=== PATIENT | female | born 1975 | race Caucasian/White ===

== ENCOUNTER 2017-04-30 18:14 | Emergency (ER) | payer SELFPAY ==
[2017-04-30] MEDS ORDERED: Ketorolac 60 MG/2 ML SDV IM ONE (18:50)
--- NOTE | 2017-04-30 18:55 | EDM.PDOC ---
ED HPI GENERAL MEDICAL PROBLEM - General Chief Complaint: Lower Extremity Injury/Pain Stated Complaint: PAIN RT LEG Time Seen by Provider: 04/30/17 18:51 Source of Information: Reports: Patient History Limitations: Reports: No Limitations - History of Present Illness INITIAL COMMENTS - FREE TEXT/NARRATIVE: HISTORY AND PHYSICAL: History of present illness: 41-year-old female presents to the emergency room today with complaints of right ankle pain. Reports last night around 9 PM she started having "achy pain" and proceeded to go to bed. Woke up this morning with muscle spasms which increased in intensity and frequency. Patient denies any recent trauma or injury. No previous history of ankle pain, trauma or surgery. Has taken over-the -counter ibuprofen without relief. Denies any significant health problems. Review of systems: As per history of present illness and below otherwise all systems reviewed and negative. Past medical history: As per history of present illness and as reviewed below otherwise noncontributory. Surgical history: As per history of present illness and as reviewed below otherwise noncontributory. Social history: No reported history of drug or alcohol abuse. Family history: As per history of present illness and as reviewed below otherwise noncontributory. Physical exam: Gen.: Nontoxic appearing 41-year-old female. Tearful and appears anxious. Able to speak in full sentences without shortness of breath. Answers questions appropriately. Alert and oriented. HEENT: Atraumatic, normocephalic, pupils reactive, negative for conjunctival pallor or scleral icterus, mucous membranes moist, throat clear, neck supple, nontender, trachea midline. Lungs: Clear to auscultation, breath sounds equal bilaterally, chest nontender. Heart: S1S2, regular, negative for clicks, rubs, or JVD. Abdomen: Soft, nondistended, nontender. Negative for masses or hepatosplenomegaly. Negative for costovertebral tenderness. Pelvis: Stable nontender. Genitourinary: Deferred. Rectal: Deferred. Extremities: Atraumatic, moves all per self. Able to bear weight. Strong pedal pulses bilaterally. Negative for cords or calf pain. Neurovascular unremarkable. Skin: Warm, dry, intact. No lesions, open sores, rashes or erythema. Neuro: Awake, alert, oriented. Cranial nerves II through XII unremarkable. Cerebellum unremarkable. Motor and sensory unremarkable throughout. Exam nonfocal. Diagnostics: Ankle x-ray Therapeutics: Toradol IM Impression: Ankle pain Definitive disposition and diagnosis as appropriate pending reevaluation and review of above. Onset Date: 04/29/17 Location: Reports: Lower Extremity, Right Right Ankle Pain Score (Numeric/FACES): 10 - Related Data Allergies Allergy/AdvReac Type Severity Reaction Status Date / Time Sulfa (Sulfonamide Allergy Rash Verified 04/30/17 18:58 Antibiotics) Home Meds: Home Meds DULoxetine [Cymbalta] 1 cap PO DAILY 04/30/17 [History] buPROPion [Wellbutrin] 1 tab PO DAILY 04/30/17 [History] Review of Systems - Review of Systems Review Of Systems: ROS reveals no pertinent complaints other than HPI. ED EXAM, GENERAL - Physical Exam Exam: See Below (See dictation) Course - Vital Signs Last Recorded V/S: Last Vital Signs Temp 36.3 C 04/30/17 18:40 Pulse 90 04/30/17 18:40 Resp 20 04/30/17 18:40 BP 138/90 04/30/17 18:40 Pulse Ox 98 04/30/17 18:40 - Orders/Labs/Meds Orders: Active Orders 24 hr Category Date Time Status Ankle Min 3V Rt [CR] Stat Exams 04/30/17 18:50 Taken Meds: Medications Discontinued Medications Generic Name Dose Route Start Last Admin Trade Name Freq PRN Reason Stop Dose Admin Ketorolac Tromethamine 60 mg 04/30/17 18:50 04/30/17 19:06 Toradol IM 04/30/17 18:51 60 mg ONETIME ONE Administration Departure - Departure Time of Disposition: 20:15 Disposition: Admitted As Inpatient 65 Condition: Good Clinical Impression: Ankle pain, right - Discharge Information Referrals: PCP,None [Primary Care Provider] - Forms: ED Department Discharge Additional Instructions: The following information is given to patients seen in the emergency department who are being discharged to home. This information is to outline your options for follow-up care. We provide all patients seen in our emergency department with a follow-up referral. The need for follow-up, as well as the timing and circumstances, are variable depending upon the specifics of your emergency department visit. If you don't have a primary care physician on staff, we will provide you with a referral. We always advise you to contact your personal physician following an emergency department visit to inform them of the circumstance of the visit and for follow-up with them and/or the need for any referrals to a consulting specialist. The emergency department will also refer you to a specialist when appropriate. This referral assures that you have the opportunity for followup care with a specialist. All of these measure are taken in an effort to provide you with optimal care, which includes your followup. Under all circumstances we always encourage you to contact your private physician who remains a resource for coordinating your care. When calling for followup care, please make the office aware that this follow-up is from your recent emergency room visit. If for any reason you are refused follow-up, please contact the [facility] emergency department at and asked to speak to the emergency department charge nurse. [facility] [address], [address] [place] [address] 1. Please take your medication as prescribed. Do not take any additional NSAIDs such as Aleve or ibuprofen while taking this medication. 2. Rest, ice, elevate the affected extremity 3. Follow up with her primary care provider or the orthopedic clinic, the number has been provided for review above. Return to the emergency room as needed as discussed - My Orders Last 24 Hours: My Active Orders 04/30/17 18:50 Ankle Min 3V Rt [CR] Stat - Assessment/Plan Last 24 Hours: My Active Orders 04/30/17 18:50 Ankle Min 3V Rt [CR] Stat
[2017-04-30 21:19] VITALS: BP 130/78
--- NOTE | 2017-05-01 13:38 | CR ---
EXAM DATE: 04/30/17 PATIENT'S AGE: 41 Patient: TELLO PATTON Facility: [place], [place] Site . Site : [id number] Study: XRay Extremity ankle [id number]/29/2017 7:19:54 PM Ordering Physician: Doctor Schafer Final Report: INDICATION: pain TECHNIQUE: Three views of the right ankle COMPARISON: None FINDINGS: Bones: No acute fracture. Enthesophyte along the Achilles tendon insertion to the calcaneus. Nonspecific sclerosis along the head of the talus. Joint spaces: Unremarkable. Soft tissues: Unremarkable. IMPRESSION: No acute bony abnormality. Dictated by Ronnell Castillo MD @ 04/30/2017 8:20:13 PM Dictated by: Ronnell Castillo MD @ 04/30/2017 20:20:19 (Electronic Signature) Report Signed by Proxy. [email or web address]
== END 2017-04-30 20:31 | disposition home or self-care (01) ==
LOC: MW.ED 18:14
DX: M25.571 Pain in right ankle and joints of right foot (principal); Z88.2 Allergy status to sulfonamides; Z79.899 Other long term (current) drug therapy
CPT/HCPCS: 73610; 96372; 99283; J1885; 99282

== ENCOUNTER 2017-05-01 13:20 | Emergency (ER) | payer BC ==
--- NOTE | 2017-05-01 13:36 | EDM.PDOC ---
ED HPI GENERAL MEDICAL PROBLEM - General Stated Complaint: RIGHT FOOT PAIN Time Seen by Provider: 05/01/17 13:36 Source of Information: Reports: Patient - History of Present Illness INITIAL COMMENTS - FREE TEXT/NARRATIVE: HISTORY AND PHYSICAL: History of present illness: []Patient presents with right ankle pain 8 out of 10 nonradiating no fever nausea vomiting chills sweats He was seen in ER yesterday, and by her primary today, hence initial workup has been done for me there is an ankle x-ray on file she is tender over the lateral malleolus with swelling denies any trauma, primary care has ordered a CBC BMP and CRP which is on file and within normal limits other than the elevated CRP and performed a ultrasound venous Doppler to rule out DVT which is negative. Upon further questioning approximately 4 months prior she did have similar symptoms in her left wrist that came on without trauma Review of systems: As per history of present illness and below otherwise all systems reviewed and negative. Past medical history: As per history of present illness and as reviewed below otherwise noncontributory. Surgical history: As per history of present illness and as reviewed below otherwise noncontributory. Social history: No reported history of drug or alcohol abuse. Family history: As per history of present illness and as reviewed below otherwise noncontributory. Physical exam: HEENT: Atraumatic, normocephalic, pupils reactive, negative for conjunctival pallor or scleral icterus, mucous membranes moist, throat clear, neck supple, nontender, trachea midline. Lungs: Clear to auscultation, breath sounds equal bilaterally, chest nontender. Heart: S1S2, regular, negative for clicks, rubs, or JVD. Abdomen: Soft, nondistended, nontender. Negative for masses or hepatosplenomegaly. Negative for costovertebral tenderness. Pelvis: Stable nontender. Genitourinary: Deferred. Rectal: Deferred. Extremities: Atraumatic, negative for cords or calf pain. Neurovascular unremarkable. Neuro: Awake, alert, oriented. Cranial nerves II through XII unremarkable. Cerebellum unremarkable. Motor and sensory unremarkable throughout. Exam nonfocal. Right ankle there is swelling over the lateral malleolus and some redness no bruising entirely is neurovascularly intact she does have exquisite pain pain involving the ankle Diagnostics: []Uric acid added to today's lab She denies/refused joint aspiration Therapeutics: Seneca 5 per 325 by mouth now Pain medicine is available through her primary care in the pharmacy hour previously prescribed Indomethacin 50 mg by mouth 3 times a day #30 no refill Cam boot and crutches are provided CAM boot is more protection as her foot and ankle is very sensitive at current, occult fracture could be a consideration if symptoms persist or worsen the recommended follow-up with primary care for consideration of CT or MRI and/or joint aspiration Crutches also provided nonweightbearing Impression: []Acute gout--clinically Definitive disposition and diagnosis as appropriate pending reevaluation and review of above. Right Ankle/Foot Pain Score (Numeric/FACES): 10 - Related Data Allergies Allergy/AdvReac Type Severity Reaction Status Date / Time Sulfa (Sulfonamide Allergy Rash Verified 05/01/17 13:35 Antibiotics) Home Meds: Home Meds DULoxetine [Cymbalta] 0 mg PO DAILY 04/30/17 [History] buPROPion [Wellbutrin] 0 mg PO DAILY 04/30/17 [History] Diclofenac Sodium [Voltaren] 0 mg PO ONETIME 05/01/17 [History] Past Medical History [employer] History: Reports: Other OB/BYN History: CSection x5 Social & Family History - Family History Family Medical History: Noncontributory - Tobacco Use Smoking Status *Q: Current Every Day Smoker Years of Tobacco use: 30 Packs/Tins Daily: 1 - Caffeine Use Caffeine Use: Reports: None - Recreational Drug Use Recreational Drug Use: No ED ROS GENERAL - Review of Systems Review Of Systems: ROS reveals no pertinent complaints other than HPI. ED EXAM, GENERAL - Physical Exam Exam: See Below Course - Vital Signs Last Recorded V/S: Last Vital Signs Temp 35.4 C 05/01/17 13:37 Pulse 92 05/01/17 13:37 Resp 18 05/01/17 13:37 BP 138/80 05/01/17 13:37 Pulse Ox 99 05/01/17 13:37 - Orders/Labs/Meds Labs: Laboratory Tests 05/01/17 Range/Units 13:39 Uric Acid 4.5 (2.1-6.2) mg/dL Meds: Medications Discontinued Medications Generic Name Dose Route Start Last Admin Trade Name Freq PRN Reason Stop Dose Admin Hydrocodone Bitart/Acetaminophen 1 tab 05/01/17 13:38 05/01/17 13:46 Seneca 325-5 Mg PO 05/01/17 13:39 1 tab ONETIME ONE Administration Methylprednisolone Sodium Succinate 125 mg 05/01/17 13:58 Solu-Medrol IM 05/01/17 13:59 ONETIME ONE Departure - Departure Time of Disposition: 14:09 Disposition: Home, Self-Care 01 Condition: Good Clinical Impression: Gout attack - Discharge Information Referrals: PCP,None [Primary Care Provider] - Additional Instructions: Indomethacin 50 mg by mouth 3 times a day when necessary #30 no refill Pain medicine is available that your primary care previously prescribed Cam boot and crutches nonweightbearing for comfort and protection If symptoms persist or worsen follow-up with primary care for consideration of joint aspiration and/or CT MRI to rule out occult fracture The following information is given to patients seen in the emergency department who are being discharged to home. This information is to outline your options for follow-up care. We provide all patients seen in our emergency department with a follow-up referral. The need for follow-up, as well as the timing and circumstances, are variable depending upon the specifics of your emergency department visit. If you don't have a primary care physician on staff, we will provide you with a referral. We always advise you to contact your personal physician following an emergency department visit to inform them of the circumstance of the visit and for follow-up with them and/or the need for any referrals to a consulting specialist. The emergency department will also refer you to a specialist when appropriate. This referral assures that you have the opportunity for follow-up care with a specialist. All of these measure are taken in an effort to provide you with optimal care, which includes your follow-up. Under all circumstances we always encourage you to contact your private physician who remains a resource for coordinating your care. When calling for follow-up care, please make the office aware that this follow-up is from your recent emergency room visit. If for any reason you are refused follow-up, please contact the [facility] emergency department at and asked to speak to the emergency department charge nurse.
[2017-05-01] MEDS ORDERED: Acetaminophen/HYDROcodone 325-5 MG Tab PO ONE (13:38)
[2017-05-01 13:42] VITALS: BP 138/80
[2017-05-01] MEDS ORDERED: methylPREDNISolone Sodium Succinate 125 MG/2 ML SDV IM ONE (13:58)
== END 2017-05-01 14:23 | disposition home or self-care (01) ==
LOC: MW.ED 13:20
DX: M10.9 Gout, unspecified (principal); Z79.899 Other long term (current) drug therapy; Z88.2 Allergy status to sulfonamides; F17.210 Nicotine dependence, cigarettes, uncomplicated; M79.661 Pain in right lower leg; R60.0 Localized edema
CPT/HCPCS: 36415; 82550; 84550; 93971; 96372; 99283; A9270; J2930; 99282

== ENCOUNTER 2018-11-13 20:55 | Emergency (ER) | payer BC ==
[2018-11-13] MEDS ORDERED: Adenosine 6 MG/2 ML SDV ONE (20:58)
[2018-11-13] MEDS ORDERED: Sodium Chloride 0.9% 1,000 ML IV ONE (21:07)
[2018-11-13] MEDS ORDERED: Sodium Chloride 0.9% 2.5 ML Syringe FLUSH PRN (21:07)
[2018-11-13] MEDS ORDERED: Sodium Chloride 0.9% 10 ML Syringe FLUSH PRN (21:07)
[2018-11-13] MEDS ORDERED: Aspirin 81 MG Tab.Chew PO ONE (21:07)
[2018-11-13] MEDS ORDERED: Adenosine 6 MG/2 ML SDV IVPUSH ONE (21:08)
--- NOTE | 2018-11-13 21:13 | EDM.PDOC ---
ED HPI GENERAL MEDICAL PROBLEM - General Chief Complaint: Chest Pain Stated Complaint: heart complications Time Seen by Provider: 11/13/18 20:55 - History of Present Illness INITIAL COMMENTS - FREE TEXT/NARRATIVE: HISTORY AND PHYSICAL: History of present illness: The patient is a 42-year-old female with a history of hypertension who has had 4 prior episodes of tachycardia 2 of which resolved at home by doing Valsalva maneuvers and to time she had to come into the ED and get medications in [place], who presents with a 20 minute episode of racing heart sweating and chest discomfort. On arrival here she was noted to be in SVT with a heart rate of 200. She did feel short of breath but no nausea. She has had some flulike symptoms over the last few days but no vomiting or diarrhea and she denies as she had a bilateral tubal ligation. The patient has never been on any rate controlling medications but only takes one medication lisinopril for blood pressure. She has had no pulmonary issues. She has no leg pain or swelling and earlier today she was having a normal day when this started. She does not drink a lot of caffeinated products and has no thyroid history. She says there are never any triggers for these episodes., Review of systems: As per history of present illness and below otherwise all systems reviewed and negative. Past medical history: As per history of present illness and as reviewed below otherwise noncontributory. Surgical history: As per history of present illness and as reviewed below otherwise noncontributory. Social history: No reported history of drug or alcohol abuse. Family history: As per history of present illness and as reviewed below otherwise noncontributory. Physical exam: General: Well-developed well-nourished female who is mildly overweight and nontoxic. Vital signs were noted by me HEENT: Atraumatic, normocephalic, , negative for conjunctival pallor or scleral icterus, mucous membranes moist, throat clear, neck supple, nontender, trachea midline. Lungs: Clear to auscultation, breath sounds equal bilaterally, chest nontender. Heart: S1S2, regular rhythm but very tachycardic rate and no overt murmur is heard but the rate is very high Abdomen: Soft, nondistended, nontender. Negative for masses or hepatosplenomegaly. Hypoactive bowel sounds Pelvis: Stable nontender. Genitourinary: Deferred. Rectal: Deferred. Extremities: Atraumatic, negative for cords or calf pain. Neurovascular unremarkable.No pedal edema or leg asymmetry Neuro: Awake, alert, oriented. Cranial nerves II through XII unremarkable. Cerebellum unremarkable. Motor and sensory unremarkable throughout. Exam nonfocal. Skin: Patient is very diaphoretic and slightly pale but there are no overt rashes or lesions. Diagnostics: EKG x 3, chest x-ray CBC CMP INR troponin TSH magnesium level urine culture Therapeutics: IV O2 monitor IV fluids aspirin adenosine Lovenox 2115: After the patient was converted and a repeat EKG was performed ST segment depression was noted in the inferior and lateral leads and the patient saying to me that she still having chest discomfort but it is significantly improved from when she came in her heart rate was so high. I discussed this case with the banker mason welding machine operator ultrasonic at [facility] in [place], Dr. Liu who is aware of the EKG changes and said that he would not do anything emergently for ST segment depression but that the patient should be watched overnight and have serial cardiac enzymes and he recommends giving a dose of Lovenox. He said he would be available if the troponin were positive. 0: Patient currently is saying that the chest discomfort she was experiencing earlier when I did the second EKG is no longer present. I will do a third EKG. 2208: Case was discussed with Dr. Prince who accepts the patient for observation admission and is aware of my conversations with the banker mason and the patient 's course here in the ED. The third EKG was performed and there is normalization of the ST segment depression and the patient is pain-free. 2218: Patient is now stating that she does not want to be admitted. She understands the concerns I have regarding her abnormal EKG and she understands that even though her cardiac enzymes are negative they could pump and that is what we will be admitting her for. She declines admission adamantly and says that she has any problems she will return. She accepts the risks involved and would prefer discharge. Dr. Prince was made aware of this Impression: Supraventricular tachycardia with history of same, converted Abnormal EKG stable Declining admission Definitive disposition and diagnosis as appropriate pending reevaluation and review of above. 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 ED EXAM, GENERAL - Physical Exam Exam: See Below (see dictation) Course - Vital Signs Last Recorded V/S: Last Vital Signs Temp Pulse 92 11/13/18 21:30 Resp 18 11/13/18 21:30 BP 132/88 11/13/18 21:30 Pulse Ox 100 11/13/18 21:30 - Orders/Labs/Meds Orders: Active Orders 24 hr Category Date Time Status Cardiac Monitoring [RC] . DIRECTED Care 11/13/18 21:06 Active EKG Documentation Completion [RC] STAT Care 11/13/18 21:06 Active EKG Documentation Completion [RC] STAT Care 11/13/18 21:07 Active EKG Documentation Completion [RC] STAT Care 11/13/18 21:51 Active Oxygen Therapy, ED [RC] ASDIRECTED Care 11/13/18 21:06 Active Pulse Oximetry [RC] ASDIRECTED Care 11/13/18 21:06 Active CULTURE URINE [RM] Stat Lab 11/13/18 22:00 Received MAGNESIUM [CHEM] Stat Lab 11/13/18 21:22 Received Sodium Chloride 0.9% [Saline Flush] Med 11/13/18 21:07 Active 10 ml FLUSH ASDIRECTED PRN Sodium Chloride 0.9% [Saline Flush] Med 11/13/18 21:07 Active 2.5 ml FLUSH ASDIRECTED PRN Saline Lock Insert [OM.PC] Stat Oth 11/13/18 21:06 Ordered Medication Orders Sodium Chloride (Saline Flush) 10 ml FLUSH ASDIRECTED PRN PRN Reason: Keep Vein Open Sodium Chloride (Saline Flush) 2.5 ml FLUSH ASDIRECTED PRN PRN Reason: Keep Vein Open Labs: Laboratory Tests 11/13/18 11/13/18 11/13/18 Range/Units 21:22 21:22 21:22 WBC 14.08 H (4.0-11.0) K/uL RBC 4.85 (4.30-5.90) M/uL Hgb 13.4 (12.0-16.0) g/dL Hct 40.2 (36.0-46.0) % MCV 82.9 (80.0-98.0) fL MCH 27.6 (27.0-32.0) pg MCHC 33.3 (31.0-37.0) g/dL RDW Std Deviation 43.6 (28.0-62.0) fl RDW Coeff of Nishant 14 (11.0-15.0) % Plt Count 358 (150-400) K/uL MPV 9.10 (7.40-12.00) fL Neut % (Auto) 67.8 (48.0-80.0) % Lymph % (Auto) 27.1 (16.0-40.0) % [place] % (Auto) 3.2 (0.0-15.0) % Eos % (Auto) 1.7 (0.0-7.0) % Baso % (Auto) 0.2 (0.0-1.5) % Neut # (Auto) 9.6 H (1.4-5.7) K/uL Lymph # (Auto) 3.8 H (0.6-2.4) K/uL [place] # (Auto) 0.5 (0.0-0.8) K/uL Eos # (Auto) 0.2 (0.0-0.7) K/uL Baso # (Auto) 0.0 (0.0-0.1) K/uL Nucleated RBC % 0.0 /100WBC Nucleated RBCs # 0 K/uL INR 0.92 Sodium 141 (136-145) mmol/L Potassium 3.8 (3.5-5.1) mmol/L Chloride 105 (98-107) mmol/L Carbon Dioxide 25.1 (21.0-32.0) mmol/L BUN 18 (7.0-18.0) mg/dL Creatinine 1.1 H (0.6-1.0) mg/dL Est Cr Clr Drug Dosing 54.55 mL/min Estimated GFR (MDRD) 54.2 ml/min Glucose 169 H (74-106) mg/dL Calcium 9.4 (8.5-10.1) mg/dL Total Bilirubin 0.1 L (0.2-1.0) mg/dL AST 33 (15-37) IU/L ALT 50 (14-63) IU/L Alkaline Phosphatase 78 (46-116) U/L Troponin I < 0.050 (0.000-0.056) ng/mL Total Protein 7.6 (6.4-8.2) g/dL Albumin 3.5 (3.4-5.0) g/dL Globulin 4.1 H (2.6-4.0) g/dL Albumin/Globulin Ratio 0.9 (0.9-1.6) TSH 3rd Generation 3.07 (0.36-3.74) uIU/mL Urine Color Urine Appearance Urine pH (5.0-8.0) Ur Specific [place] (1.001-1.035) Urine Protein (NEGATIVE) mg/dL Urine Glucose (UA) (NEGATIVE) mg/dL Urine Ketones (NEGATIVE) mg/dL Urine Occult Blood (NEGATIVE) Urine Nitrite (NEGATIVE) Urine Bilirubin (NEGATIVE) Urine Urobilinogen (<2.0) EU/dL Ur Leukocyte Esterase (NEGATIVE) Urine RBC (0-2/HPF) Urine WBC (0-5/HPF) Ur Squamous Epith Cells Urine Bacteria (NEGATIVE) Urine Mucus (NONE-MOD) 11/13/18 Range/Units 22:00 WBC (4.0-11.0) K/uL RBC (4.30-5.90) M/uL Hgb (12.0-16.0) g/dL Hct (36.0-46.0) % MCV (80.0-98.0) fL MCH (27.0-32.0) pg MCHC (31.0-37.0) g/dL RDW Std Deviation (28.0-62.0) fl RDW Coeff of Nishant (11.0-15.0) % Plt Count (150-400) K/uL MPV (7.40-12.00) fL Neut % (Auto) (48.0-80.0) % Lymph % (Auto) (16.0-40.0) % [place] % (Auto) (0.0-15.0) % Eos % (Auto) (0.0-7.0) % Baso % (Auto) (0.0-1.5) % Neut # (Auto) (1.4-5.7) K/uL Lymph # (Auto) (0.6-2.4) K/uL [place] # (Auto) (0.0-0.8) K/uL Eos # (Auto) (0.0-0.7) K/uL Baso # (Auto) (0.0-0.1) K/uL Nucleated RBC % /100WBC Nucleated RBCs # K/uL INR Sodium (136-145) mmol/L Potassium (3.5-5.1) mmol/L Chloride (98-107) mmol/L Carbon Dioxide (21.0-32.0) mmol/L BUN (7.0-18.0) mg/dL Creatinine (0.6-1.0) mg/dL Est Cr Clr Drug Dosing mL/min Estimated GFR (MDRD) ml/min Glucose (74-106) mg/dL Calcium (8.5-10.1) mg/dL Total Bilirubin (0.2-1.0) mg/dL AST (15-37) IU/L ALT (14-63) IU/L Alkaline Phosphatase (46-116) U/L Troponin I (0.000-0.056) ng/mL Total Protein (6.4-8.2) g/dL Albumin (3.4-5.0) g/dL Globulin (2.6-4.0) g/dL Albumin/Globulin Ratio (0.9-1.6) TSH 3rd Generation (0.36-3.74) uIU/mL Urine Color YELLOW Urine Appearance CLEAR Urine pH 7.0 (5.0-8.0) Ur Specific [place] 1.020 (1.001-1.035) Urine Protein TRACE H (NEGATIVE) mg/dL Urine Glucose (UA) NEGATIVE (NEGATIVE) mg/dL Urine Ketones NEGATIVE (NEGATIVE) mg/dL Urine Occult Blood TRACE-INTACT H (NEGATIVE) Urine Nitrite NEGATIVE (NEGATIVE) Urine Bilirubin NEGATIVE (NEGATIVE) Urine Urobilinogen 0.2 (<2.0) EU/dL Ur Leukocyte Esterase NEGATIVE (NEGATIVE) Urine RBC 0-2 (0-2/HPF) Urine WBC 0-2 (0-5/HPF) Ur Squamous Epith Cells FEW Urine Bacteria 1+ H (NEGATIVE) Urine Mucus LIGHT (NONE-MOD) Meds: Medications Generic Name Dose Route Start Last Admin Trade Name Cristian PRN Reason Stop Dose Admin Sodium Chloride 10 ml 11/13/18 21:07 Saline Flush FLUSH ASDIRECTED PRN Keep Vein Open Sodium Chloride 2.5 ml 11/13/18 21:07 Saline Flush FLUSH ASDIRECTED PRN Keep Vein Open Discontinued Medications Generic Name Dose Route Start Last Admin Trade Name Freq PRN Reason Stop Dose Admin Adenosine Confirm 11/13/18 20:58 11/13/18 22:09 Adenocard Administered 11/13/18 20:59 Not Given Dose 12 mg .ROUTE .STK-MED ONE Adenosine 6 mg 11/13/18 21:08 11/13/18 21:00 Adenocard IVPUSH 11/13/18 21:09 6 mg NOW ONE Administration Aspirin 324 mg 11/13/18 21:07 11/13/18 21:25 Aspirin PO 11/13/18 21:08 324 mg ONETIME ONE Administration Enoxaparin Sodium 100 mg 11/13/18 21:18 11/13/18 21:29 Lovenox SUBCUT 11/13/18 21:19 100 mg ONETIME ONE Administration Sodium Chloride 1,000 mls @ 999 mls/hr 11/13/18 21:07 11/13/18 21:22 Normal Saline IV 11/13/18 22:07 999 mls/hr STAT ONE Administration Departure - Departure Time of Disposition: 22:18 Disposition: Home, Self-Care 01 Condition: Good Clinical Impression: Abnormal EKG, SVT (supraventricular tachycardia) - Discharge Information Referrals: PCP,None [Primary Care Provider] - Forms: ED Department Discharge Additional Instructions: The following information is given to patients seen in the emergency department who are being discharged to home. This information is to outline your options for follow-up care. We provide all patients seen in our emergency department with a follow-up referral. The need for follow-up, as well as the timing and circumstances, are variable depending upon the specifics of your emergency department visit. If you don't have a primary care physician on staff, we will provide you with a referral. We always advise you to contact your personal physician following an emergency department visit to inform them of the circumstance of the visit and for follow-up with them and/or the need for any referrals to a consulting specialist. The emergency department will also refer you to a specialist when appropriate. This referral assures that you have the opportunity for followup care with a specialist. All of these measure are taken in an effort to provide you with optimal care, which includes your followup. Under all circumstances we always encourage you to contact your private physician who remains a resource for coordinating your care. When calling for followup care, please make the office aware that this follow-up is from your recent emergency room visit. If for any reason you are refused follow-up, please contact the [facility] emergency department at and ask to speak to the emergency department charge nurse. [facility] Primary care- [place] [address] Please push hydration and rest and please call and follow-up with your provider in the clinic in the morning. Please return to ER as needed and as we discussed to change her mind about admission. - My Orders Last 24 Hours: My Active Orders 11/13/18 21:06 Cardiac Monitoring [RC] . DIRECTED EKG Documentation Completion [RC] STAT Oxygen Therapy, ED [RC] ASDIRECTED Pulse Oximetry [RC] ASDIRECTED Saline Lock Insert [OM.PC] Stat 11/13/18 21:07 EKG Documentation Completion [RC] STAT Sodium Chloride 0.9% [Saline Flush] 10 ml FLUSH ASDIRECTED PRN Sodium Chloride 0.9% [Saline Flush] 2.5 ml FLUSH ASDIRECTED PRN 11/13/18 21:22 MAGNESIUM [CHEM] Stat 11/13/18 21:51 EKG Documentation Completion [RC] STAT 11/13/18 22:00 CULTURE URINE [RM] Stat - Assessment/Plan Last 24 Hours: My Active Orders 11/13/18 21:06 Cardiac Monitoring [RC] . DIRECTED EKG Documentation Completion [RC] STAT Oxygen Therapy, ED [RC] ASDIRECTED Pulse Oximetry [RC] ASDIRECTED Saline Lock Insert [OM.PC] Stat 11/13/18 21:07 EKG Documentation Completion [RC] STAT Sodium Chloride 0.9% [Saline Flush] 10 ml FLUSH ASDIRECTED PRN Sodium Chloride 0.9% [Saline Flush] 2.5 ml FLUSH ASDIRECTED PRN 11/13/18 21:22 MAGNESIUM [CHEM] Stat 11/13/18 21:51 EKG Documentation Completion [RC] STAT 11/13/18 22:00 CULTURE URINE [RM] Stat
[2018-11-13] MEDS ORDERED: Enoxaparin 100 MG/1 ML Syringe SUBCUT ONE (21:18)
[2018-11-13 22:01] LABS: CHLORIDE,CL 105 mmol/L (98-107); SODIUM,NA 141 mmol/L (136-145)
--- NOTE | 2018-11-13 22:04 | CR ---
Indication: Pain. SOB Technique: Chest 1 view Comparison: None Findings/Impression: Cardiovascular and mediastinum: Unremarkable cardiac silhouette for a portable technique. A mildly unfolded aorta. Lungs and pleural space: Lungs are clear. No sign of infiltrate or mass. No sign of pleural effusion. No pneumothorax. Bones and soft tissues: No significant findings. Dictated by Dillan Farrar MD @ 11/13/2018 10:03:02 PM Dictated by: Dillan Farrar MD @ 11/13/2018 22:03:06 (Electronically Signed)
[2018-11-13 23:01] VITALS: BP 126/92
== END 2018-11-13 22:30 | disposition home or self-care (01) ==
LOC: MW.ED 20:55
DX: I47.1 Supraventricular tachycardia (principal); R94.31 Abnormal electrocardiogram [ECG] [EKG]; Z88.2 Allergy status to sulfonamides; Z79.899 Other long term (current) drug therapy
CPT/HCPCS: 36415; 71045; 80053; 81001; 83735; 84443; 84484; 85025; 85610; 87086; 96361; 96374; 99285; A9270; J0153; J1650; J7040; 93005; 99284

== ENCOUNTER 2019-03-15 19:49 | Emergency (ER) | payer BC ==
[2019-03-15] MEDS ORDERED: Albuterol/Ipratropium 3.0-0.5 MG/3 ML Neb Soln NEB ONE (20:08)
[2019-03-15] MEDS ORDERED: methylPREDNISolone Sodium Succinate 125 MG/2 ML SDV IM ONE (20:09)
--- NOTE | 2019-03-15 20:11 | EDM.PDOC ---
ED HPI GENERAL MEDICAL PROBLEM - General Chief Complaint: Respiratory Problem Stated Complaint: TROUBLE BREAHTING Time Seen by Provider: 03/15/19 20:09 Source of Information: Reports: Patient - History of Present Illness INITIAL COMMENTS - FREE TEXT/NARRATIVE: HISTORY AND PHYSICAL: History of present illness: []Patient presents with cough and slight end expiratory wheeze over the last couple of days she has long smoking history contact in the home she does have mild sore throat however her main complaint today is cough and wheeze no air hunger no retractions or secondary muscle use no pursed lip breathing no distress No fever nausea vomiting chills sweats no chest pain headache dizziness palpitation no bowel or urine symptoms Review of systems: As per history of present illness and below otherwise all systems reviewed and negative. Past medical history: As per history of present illness and as reviewed below otherwise noncontributory. Surgical history: As per history of present illness and as reviewed below otherwise noncontributory. Social history: No reported history of drug or alcohol abuse. Family history: As per history of present illness and as reviewed below otherwise noncontributory. Physical exam: HEENT: Atraumatic, normocephalic, pupils reactive, negative for conjunctival pallor or scleral icterus, mucous membranes moist, throat clear, neck supple, nontender, trachea midline. Mild erythema no exudates Lungs: Clear to auscultation, breath sounds equal bilaterally, chest nontender. Post DuoNeb and Solu-Medrol prior her chest did have decreased air movement Heart: S1S2, regular, negative for clicks, rubs, or JVD. Abdomen: Soft, nondistended, nontender. Negative for masses or hepatosplenomegaly. Negative for costovertebral tenderness. Pelvis: Stable nontender. Genitourinary: Deferred. Rectal: Deferred. Extremities: Atraumatic, negative for cords or calf pain. Neurovascular unremarkable. Neuro: Awake, alert, oriented. Cranial nerves II through XII unremarkable. Cerebellum unremarkable. Motor and sensory unremarkable throughout. Exam nonfocal. Diagnostics: [Chest 2 views ] Therapeutics: [DuoNeb Solu-Medrol 125 mg IM Levaquin 500 by mouth now and daily #90 no refill Current is on 20 mg daily #5 no refill HFA Rpw ] Impression: Slight infiltrate on chest x-ray will follow radiology interpretation [ bronchitis Pharyngitis ] Definitive disposition and diagnosis as appropriate pending reevaluation and review of above. throat Pain Score (Numeric/FACES): 8 - Related Data Allergies Allergy/AdvReac Type Severity Reaction Status Date / Time Latex, Natural Rubber Allergy Hives Verified 03/15/19 19:59 Sulfa (Sulfonamide Allergy Rash Verified 03/15/19 19:59 Antibiotics) Home Meds: Home Meds Dextroamphetamine/Amphetamine [Adderall 10 mg Tablet] 30 mg PO DAILY 11/13/18 [ History] Lisinopril [Zestril] 40 mg PO DAILY 11/13/18 [History] Past Medical History HEENT History: Reports: None Cardiovascular History: Reports: Arrhythmia, Hypertension Respiratory History: Reports: None Gastrointestinal History: Reports: None Genitourinary History: Reports: None 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 Musculoskeletal History: Reports: None Neurological History: Reports: None Psychiatric History: Reports: Anxiety, Depression Endocrine/Metabolic History: Reports: None Hematologic History: Reports: None Immunologic History: Reports: None Oncologic (Cancer) History: Reports: None Dermatologic History: Reports: None - Infectious Disease History Infectious Disease History: Reports: None - Past Surgical History Head Surgeries/Procedures: Reports: None Female Surgical History: Reports: Section Social & Family History - Family History Family Medical History: Noncontributory - Tobacco Use Smoking Status *Q: Never Smoker - Caffeine Use Caffeine Use: Reports: Coffee - Recreational Drug Use Recreational Drug Use: No ED ROS GENERAL - Review of Systems Review Of Systems: See Below ED EXAM, GENERAL - Physical Exam Exam: See Below Course - Vital Signs Last Recorded V/S: Last Vital Signs Temp 96.8 F 03/15/19 19:56 Pulse 98 03/15/19 19:56 Resp 18 03/15/19 19:56 BP 157/116 H 03/15/19 19:56 Pulse Ox 94 L 03/15/19 19:56 - Orders/Labs/Meds Orders: Active Orders 24 hr Category Date Time Status RT Aerosol Therapy [RC] ASDIRECTED Care 03/15/19 20:09 Active Chest 2V [CR] Stat Exams 03/15/19 20:08 Taken Meds: Medications Discontinued Medications Generic Name Dose Route Start Last Admin Trade Name Freq PRN Reason Stop Dose Admin Albuterol/Ipratropium 3 ml 03/15/19 20:08 03/15/19 20:30 Duoneb 3.0-0.5 Mg/3 Ml NEB 03/15/19 20:09 3 ml ONETIME ONE Administration Levofloxacin 500 mg 03/15/19 21:00 Levaquin PO 03/15/19 21:01 ONETIME ONE Methylprednisolone Sodium Succinate 125 mg 03/15/19 20:09 03/15/19 20:21 Solu-Medrol IM 03/15/19 20:10 125 mg ONETIME ONE Administration Departure - Departure Time of Disposition: 21:02 Disposition: Home, Self-Care 01 Condition: Good Clinical Impression: Bronchitis, Pharyngitis - Discharge Information Referrals: Dominique Noriega NP [Primary Care Provider] - Forms: ED Department Discharge Additional Instructions: The following information is given to patients seen in the emergency department who are being discharged to home. This information is to outline your options for follow-up care. We provide all patients seen in our emergency department with a follow-up referral. The need for follow-up, as well as the timing and circumstances, are variable depending upon the specifics of your emergency department visit. If you don't have a primary care physician on staff, we will provide you with a referral. We always advise you to contact your personal physician following an emergency department visit to inform them of the circumstance of the visit and for follow-up with them and/or the need for any referrals to a consulting specialist. The emergency department will also refer you to a specialist when appropriate. This referral assures that you have the opportunity for follow-up care with a specialist. All of these measure are taken in an effort to provide you with optimal care, which includes your follow-up. Under all circumstances we always encourage you to contact your private physician who remains a resource for coordinating your care. When calling for follow-up care, please make the office aware that this follow-up is from your recent emergency room visit. If for any reason you are refused follow-up, please contact the [facility] emergency department at and asked to speak to the emergency department charge nurse. - My Orders Last 24 Hours: My Active Orders 03/15/19 20:08 Chest 2V [CR] Stat 03/15/19 20:09 RT Aerosol Therapy [RC] ASDIRECTED - Assessment/Plan Last 24 Hours: My Active Orders 03/15/19 20:08 Chest 2V [CR] Stat 03/15/19 20:09 RT Aerosol Therapy [RC] ASDIRECTED
[2019-03-15] MEDS ORDERED: Levofloxacin 500 MG Tab PO ONE (21:00)
--- NOTE | 2019-03-15 21:04 | CR ---
HISTORY: Cough and dyspnea. TECHNIQUE: Two views of the chest. COMPARISON: 11/13/2018. FINDINGS: Cardiac size and pulmonary vasculature are within normal limits. There is no acute lung infiltrate or pulmonary edema. No pneumothorax or pleural effusion. No acute bony abnormality. IMPRESSION: No acute disease. Dictated by Carroll Jimenes MD @ 03/15/2019 9:03:18 PM Dictated by: Carroll Jimenes MD @ 03/15/2019 21:03:21 (Electronically Signed)
[2019-03-15 21:07] VITALS: BP 154/102
== END 2019-03-15 21:11 | disposition home or self-care (01) ==
LOC: MW.ED 19:49
DX: J40 Bronchitis, not specified as acute or chronic (principal); J02.9 Acute pharyngitis, unspecified; I10 Essential (primary) hypertension; Z91.040 Latex allergy status; Z88.2 Allergy status to sulfonamides; Z79.899 Other long term (current) drug therapy
CPT/HCPCS: 71046; 94640; 96372; 99283; A9270; J2930; J7620-GY

== ENCOUNTER 2019-12-23 19:13 | Emergency (ER) | payer BC ==
[2019-12-23] MEDS ORDERED: Sodium Chloride 0.9% 10 ML SDV IV PRN (20:03)
[2019-12-23] MEDS ORDERED: Sodium Chloride 0.9% 2.5 ML Syringe FLUSH PRN (20:03)
[2019-12-23] MEDS ORDERED: Sodium Chloride 0.9% 10 ML Syringe FLUSH PRN (20:03)
[2019-12-23 20:20] LABS: BLOOD UREA NITROGEN,BUN 7 mg/dL (7.0-18.0); CARBON DIOXIDE,CO2 26.4 mmol/L (21.0-32.0); CHLORIDE,CL 96 mmol/L (98-107); GLUCOSE RANDOM 106 mg/dL (74-106); SODIUM,NA 132 mmol/L (136-145)
--- NOTE | 2019-12-23 20:32 | EDM.PDOC ---
ED HPI GENERAL MEDICAL PROBLEM - General Chief Complaint: Chest Pain Stated Complaint: CHEST PAIN AND COUGH Time Seen by Provider: 12/23/19 19:47 - History of Present Illness INITIAL COMMENTS - FREE TEXT/NARRATIVE: 44-year-old female past medical history of hypertension and very infrequent SVT presents with point of vomiting and some pleuritic chest "pain" that feels like bronchitis . Patient reports being treated for shingles in her lower right back about 2 and half weeks ago. She began to be nauseated roughly 48 hours ago therefore stopped all of her other medications. She has begun to have a cough in the last 48 hours, and when she coughs it makes her nauseated and she feels the acid is approaching her mouth and she has chest pain when she is coughing hard. She denies any shortness of breath. She reports a low-grade fever at home 99+ degrees. She denies any known sick contacts. No recent travels. Patient denies : General: No fevers or chills. No malaise or fatigue. No recent change in weight. No thirst. Heent: No change in vision, no earache, sore throat or sinus congestion. Neck: No pain or stiffness. Cardiovascular: No palpitations. Pulmonary: No shortness of breath. Gastrointestinal: No abdominal pain, nausea, vomiting or diarrhea, melena or bright red blood per rectum. Genitourinary: No urinary frequency, urgency, hesitancy or dysuria. Muskuloskeletal: No joint or muscle pain, no other back pain, no recent trauma. Dermatologic: No rash, no itching, no lesions. Neuro: No headache, seizures, numbness, tingling or weakness. Psych: No depressive symptoms. left chest Pain Score (Numeric/FACES): 9 - Related Data Allergies Allergy/AdvReac Type Severity Reaction Status Date / Time Latex, Natural Rubber Allergy Hives Verified 12/23/19 19:37 Sulfa (Sulfonamide Allergy Rash Verified 12/23/19 19:37 Antibiotics) Home Meds: Home Meds Dextroamphetamine/Amphetamine [Adderall 10 mg Tablet] 20 mg PO DAILY 11/13/18 [ History] lisinopriL [Zestril] 40 mg PO DAILY 11/13/18 [History] ClonazePAM [KlonoPIN] 1 tab PO DAILY PRN 12/23/19 [History] Doxycycline [Vibramycin] 100 mg PO BID 10 Days #20 cap 12/23/19 [Rx] Past Medical History HEENT History: Reports: None Cardiovascular History: Reports: Arrhythmia, Hypertension Respiratory History: Reports: None Gastrointestinal History: Reports: None Genitourinary History: Reports: None 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 History: Reports: Other CHILD CARE WORKER History: CSection x5 Musculoskeletal History: Reports: None Neurological History: Reports: None Psychiatric History: Reports: Anxiety, Depression Endocrine/Metabolic History: Reports: None Hematologic History: Reports: None Immunologic History: Reports: None Oncologic (Cancer) History: Reports: None Dermatologic History: Reports: None - Infectious Disease History Infectious Disease History: Reports: Shingles - Past Surgical History Head Surgeries/Procedures: Reports: None Female Surgical History: Reports: Section Social & Family History - Family History Family Medical History: Noncontributory - Tobacco Use Smoking Status *Q: Current Every Day Smoker Years of Tobacco use: 30 Packs/Tins Daily: 0.5 - Caffeine Use Caffeine Use: Reports: Coffee - Recreational Drug Use Recreational Drug Use: No ED ROS GENERAL - Review of Systems Review Of Systems: Comprehensive ROS is negative, except as noted in HPI. ED EXAM, GENERAL - Physical Exam Exam: See Below Free Text/Narrative:: General: No acute distress. Comfortable. Heent: Examination revealed no pallor, no icterus, no lymphadenopathy. The patient has normal posterior pharynx, moist mucous membranes. Neck: Supple. No JVD. No rigidity. Heart: Tachycardia. Reg rhythm. No murmurs appreciated. Lungs: Bilaterally clear to auscultation. No focal findings. Abdomen: Obese. Nontender, non-distended, soft, no CVA tenderness. Neuro: Pt is moving all four extremities. EOMI. PERRL. Normal speech. Skin: Exposed areas appeared normally perfused, warm, normal color with no meaningful rashes or lesions. Extremities: Peripheral examination revealed no pedal edema. Peripheral pulses were 2+. EKG INTERPRETATION EKG Interpretation Comments: EKG time 7:22 PM. Sinus tachycardia at 115. Normal intervals, normal axis. QTC 454. No evidence of ischemia. Course - Vital Signs Text/Narrative:: Patient with pneumonia. Excellent pressures. Saturations while napping are as low as 90% but when she wakes up and takes a single deep breath her saturations were around 95% with an excellent waveform at the bedside. I did offer admission. This was chiefly because of her mild tachycardia. While sleeping her heart rate was around 109 or 110, likley mild dehydration as she does endorse having some trouble drinking fluids because of the pain in her chest. This pain of course is from the pneumonia is left-sided and she says it feels like "bronchitis." Accordingly we will keep the patient here for a fluid bolus and then discharged home as the patient declines admission. This is reasonable but she will need return with any significant shortness of breath or any worsening of any kind. She will also talk to her primary care provider. Last Recorded V/S: Last Vital Signs Temp 98.1 F 12/24/19 00:10 Pulse 111 H 12/24/19 00:10 Resp 17 12/24/19 00:10 BP 124/77 12/24/19 00:10 Pulse Ox 97 12/24/19 00:10 - Orders/Labs/Meds Orders: Active Orders 24 hr Category Date Time Status Cardiac Monitoring [RC] . DIRECTED Care 12/23/19 20:03 Active Peripheral IV Insertion Adult [OM.PC] Stat Oth 12/23/19 20:03 Ordered Labs: Laboratory Tests 12/23/19 12/23/19 12/23/19 Range/Units 19:30 19:30 20:32 WBC 16.42 H (4.0-11.0) K/uL RBC 4.84 (4.30-5.90) M/uL Hgb 13.3 (12.0-16.0) g/dL Hct 40.6 (36.0-46.0) % MCV 83.9 (80.0-98.0) fL MCH 27.5 (27.0-32.0) pg MCHC 32.8 (31.0-37.0) g/dL RDW Std Deviation 42.9 (28.0-62.0) fl RDW Coeff of Nishant 14 (11.0-15.0) % Plt Count 329 (150-400) K/uL MPV 9.30 (7.40-12.00) fL Neut % (Auto) 68.3 (48.0-80.0) % Lymph % (Auto) 23.6 (16.0-40.0) % [facility] % (Auto) 7.2 (0.0-15.0) % Eos % (Auto) 0.7 (0.0-7.0) % Baso % (Auto) 0.2 (0.0-1.5) % Neut # (Auto) 11.2 H (1.4-5.7) K/uL Lymph # (Auto) 3.9 H (0.6-2.4) K/uL [facility] # (Auto) 1.2 H (0.0-0.8) K/uL Eos # (Auto) 0.1 (0.0-0.7) K/uL Baso # (Auto) 0.0 (0.0-0.1) K/uL Nucleated RBC % 0.0 /100WBC Nucleated RBCs # 0 K/uL Sodium 132 L (136-145) mmol/L Potassium 4.0 (3.5-5.1) mmol/L Chloride 96 L (98-107) mmol/L Carbon Dioxide 26.4 (21.0-32.0) mmol/L BUN 7 (7.0-18.0) mg/dL Creatinine 0.9 (0.6-1.0) mg/dL Est Cr Clr Drug Dosing 65.30 mL/min Estimated GFR (MDRD) > 60.0 ml/min Glucose 106 (74-106) mg/dL Calcium 8.8 (8.5-10.1) mg/dL Total Bilirubin 0.7 (0.2-1.0) mg/dL AST 25 (15-37) IU/L ALT 40 (14-63) IU/L Alkaline Phosphatase 95 (46-116) U/L Troponin I < 0.050 (0.000-0.056) ng/mL Total Protein 8.1 (6.4-8.2) g/dL Albumin 3.2 L (3.4-5.0) g/dL Globulin 4.9 H (2.6-4.0) g/dL Albumin/Globulin Ratio 0.7 L (0.9-1.6) Urine HCG, Qual NEGATIVE (NEGATIVE) Meds: Medications Discontinued Medications Generic Name Dose Route Start Last Admin Trade Name Freq PRN Reason Stop Dose Admin Doxycycline Hyclate 100 mg 12/23/19 22:03 12/23/19 22:33 Vibramycin PO 04/22/20 22:04 100 mg ONETIME ONE Administration Sodium Chloride 1,000 mls @ 999 mls/hr 12/23/19 22:17 12/23/19 22:33 Normal Saline IV 12/23/19 23:17 999 mls/hr .BOLUS ONE Administration Sodium Chloride 10 ml 12/23/19 20:03 Saline Flush FLUSH ASDIRECTED PRN Keep Vein Open Sodium Chloride 2.5 ml 12/23/19 20:03 Saline Flush FLUSH ASDIRECTED PRN Keep Vein Open Sodium Chloride 10 ml 12/23/19 20:03 Normal Saline IV ASDIRECTED PRN IV Use Departure - Departure Time of Disposition: 22:27 Disposition: Home, Self-Care 01 Condition: Good Clinical Impression: Pneumonia Qualifiers: Pneumonia type: due to unspecified organism Laterality: left Lung location: upper lobe of lung Qualified Code(s): J18.9 - Pneumonia, unspecified organism - Discharge Information Prescriptions: Doxycycline [Vibramycin] 100 mg PO BID 10 Days #20 cap Instructions: Community-Acquired Pneumonia, Adult, [id number] Referrals: PCP,None [Primary Care Provider] - Forms: ED Department Discharge Additional Instructions: You have pneumonia. Take your doxycycline as directed. Status on this medication. You chose not to be admitted to the hospital and this is reasonable. However you must return to the hospital immediately with any significant shortness of breath. Follow-up with your primary care physician by phone as well. You can take ondansetron for nausea. The following information is given to patients seen in the emergency department who are being discharged to home. This information is to outline your options for follow-up care. We provide all patients seen in our emergency department with a follow-up referral. The need for follow-up, as well as the timing and circumstances, are variable depending upon the specifics of your emergency department visit. If you don't have a primary care physician on staff, we will provide you with a referral. We always advise you to contact your personal physician following an emergency department visit to inform them of the circumstance of the visit and for follow-up with them and/or the need for any referrals to a consulting specialist. The emergency department will also refer you to a specialist when appropriate. This referral assures that you have the opportunity for follow-up care with a specialist. All of these measure are taken in an effort to provide you with optimal care, which includes your follow-up. Under all circumstances we always encourage you to contact your private physician who remains a resource for coordinating your care. When calling for follow-up care, please make the office aware that this follow-up is from your recent emergency room visit. If for any reason you are refused follow-up, please contact the [facility] Department at and asked to speak to the emergency department charge nurse. Sepsis Event Note - Evaluation Sepsis Screening Result: No Definite Risk - Focused Exam Vital Signs: Vital Signs Temp Pulse Resp BP Pulse Ox 12/24/19 00:10 98.1 F 111 H 17 124/77 97 12/23/19 23:38 106 H 33 H 164/81 H 90 L 12/23/19 23:08 107 H 41 H 159/87 H 91 L 12/23/19 22:38 110 H 30 H 194/123 H 92 L 12/23/19 22:08 115 H 34 H 139/94 H 93 L 12/23/19 21:36 113 H 31 H 147/92 H 92 L 12/23/19 19:34 97.2 F 121 H 20 152/102 H 94 L Date Exam was Performed: 12/24/19 Time Exam was Performed: 06:30 - My Orders Last 24 Hours: My Active Orders 12/23/19 20:03 Cardiac Monitoring [RC] . DIRECTED Peripheral IV Insertion Adult [OM.PC] Stat - Assessment/Plan Last 24 Hours: My Active Orders 12/23/19 20:03 Cardiac Monitoring [RC] . DIRECTED Peripheral IV Insertion Adult [OM.PC] Stat
--- NOTE | 2019-12-23 21:00 | CR ---
Chest: Portable view of the chest was obtained. Comparison: Prior chest x-ray of 03/15/19. Focal area of consolidation is noted within the left upper lung. Lungs otherwise are clear. Heart size and mediastinum are normal. Bony structures are grossly intact. Impression: 1. Focal area of consolidation within the left upper lung. Please correlate if patient has infectious symptoms for this to represent an area of pneumonia. 2. No additional abnormality is seen on portable chest x-ray. Diagnostic code #3 This report was dictated in MDT
[2019-12-23] MEDS ORDERED: Doxycycline 100 MG Cap PO ONE (22:03)
[2019-12-23] MEDS ORDERED: Sodium Chloride 0.9% 1,000 ML IV ONE (22:17)
[2019-12-24 00:35] VITALS: BP 124/77; PULSE 111
== END 2019-12-24 00:10 | disposition home or self-care (01) ==
LOC: MW.ED 19:13
DX: J18.9 Pneumonia, unspecified organism (principal); I10 Essential (primary) hypertension; F41.9 Anxiety disorder, unspecified; F17.210 Nicotine dependence, cigarettes, uncomplicated; E66.9 Obesity, unspecified; Z68.41 Body mass index [BMI] 40.0-44.9, adult; Z88.2 Allergy status to sulfonamides; Z79.899 Other long term (current) drug therapy; Z91.040 Latex allergy status
CPT/HCPCS: 36415; 71045; 80053; 81025; 84484; 85025; 93005; 96360; 99285; A9270; J7030; 99284

== ENCOUNTER 2022-09-15 10:01 | Emergency (ER) | payer SELFPAY ==
[2022-09-15] MEDS ORDERED: Sodium Chloride 0.9% 10 ML Syringe FLUSH PRN (10:20)
[2022-09-15] MEDS ORDERED: Sodium Chloride 0.9% 2.5 ML Syringe FLUSH PRN (10:20)
[2022-09-15] MEDS ORDERED: Morphine 4 MG/ML Syringe IVPUSH ONE (10:21)
[2022-09-15 11:36] LABS: CARBON DIOXIDE,CO2 26.6 mmol/L (21.0-32.0); POTASSIUM,K 4.1 mmol/L (3.5-5.1)
[2022-09-15] MEDS ORDERED: Morphine 4 MG/ML Syringe IVPUSH PRN (12:05)
[2022-09-15 13:38] VITALS: BP 136/84; PULSE 87
[2022-09-15] MEDS ORDERED: Iopamidol 755 Mg/ML 100 ML Bottle IVPUSH ONE (13:53)
[2022-09-15] MEDS ORDERED: Alum Hydro/Mag Hydro/Simeth XS 15 ML, Lidocaine 2% 5 ML PO ONE ×2 (15:05)
== END 2022-09-15 16:30 | disposition home or self-care (01) ==
LOC: MW.ED 10:01
DX: R10.13 Epigastric pain (principal); I10 Essential (primary) hypertension; Z91.040 Latex allergy status; Z88.2 Allergy status to sulfonamides; Z79.899 Other long term (current) drug therapy; Z20.822 Contact with and (suspected) exposure to COVID-19
CPT/HCPCS: 36415; 74160; 76705; 80053; 81025; 83690; 85025; 87635; 93005; 96374; 96376; 99284; A9270; J2270; J3490; Q9967; U0002